=== PATIENT | male | born 1940 | race Caucasian/White ===

== ENCOUNTER → 2016-11-14 | Outpatient (CLI) | payer MEDICARE ==
[~2016-11-14] MED LIST: ASP81TEC PO; ATOR40TA70 PO; CARV12.5 GT; LISI1TAB10 PO; MULT-974 PO; NTR.4SL SL; PIOG1TAB15 PO; RT-FLOV44 INH
--- NOTE | 2016-11-14 10:47 | Diagnostic Imaging Report ---
PA and lateral chest. INDICATION: Shortness of breath. The mild cardiomegaly and the sternotomy wires and surgical clips noted on the prior exam of 11/18/2016, are again evident and no different; however, in the interval since the previous study a moderate left pleural effusion has developed. I suspect there is also some atelectasis/infiltrate in this region. Furthermore, there is also now a suggestion of a roughly 3-cm rounded soft tissue density near the left heart border. The possibility that this is related to a neoplastic mass should certainly be considered. CT of the chest would be recommended for further evaluation. The left upper lung and right lung are generally clear. The mediastinum is not widened. The osseous structures are intact. IMPRESSION: The appearance of the chest has worsened since the prior study as left lower lobe pneumonia/atelectasis and fluid has developed. There is also a question of a neoplastic mass involving the left lower lobe. CT of the chest would be recommended for further study. Dictated by: Dictated on workstation # [id number]
== END ==
LOC: RAD 08:36
PROVIDERS: ATTEND Internal Medicine
DX: R06.00 Dyspnea, unspecified (principal)
CPT/HCPCS: 71020

== ENCOUNTER → 2016-11-20 | Outpatient (CLI) | payer MEDICARE ==
[~2016-11-20] MED LIST changes: +CATHETER FLUSH 10 ML SYR IV PRN; +IOHEXOL 350 MG/ML 100 ML (OMNIPAQUE 350) VIAL IV ONE; +NS 100 ML (IVPB) BAG IV ONE
[2016-11-20 11:02] LABS: BLOOD UREA NITROGEN 15 MG/DL (7-18); BUN/CREATININE RATIO 18; CREATININE SERUM 0.85 MG/DL (0.60-1.30); GFR ESTIMATED > 60
--- NOTE | 2016-11-20 13:36 | Diagnostic Imaging Report ---
PROCEDURE: CT chest with contrast only. TECHNIQUE: Multiple contiguous axial images were obtained through the chest after administration of intravenous contrast. INDICATION: Shortness of breath. Abnormal chest x-ray. Possible pleural effusion. 75 mL of Omnipaque-350 was administered intravenously. FINDINGS: There is a small to moderate left pleural effusion with enhancing, slightly thickened pleural lining, could be secondary to infection. There is associated consolidation in the left lower lobe with anteriorly an area that has a mass-like appearance measuring 3.8 x 2.3 cm. There are a few scattered calcifications which could be related to preexistent prior granulomatous process. The findings are favored to be related to pneumonia with likely infected adjacent effusion/early empyema. There are borderline-sized lymph nodes in the grazyna and mediastinum, probably reactive. There is mild scarring in the right lung base. No mediastinal mass. The findings are related to prior CABG with a healed sternotomy noted. Sternotomy wires are seen. There is no axillary lymphadenopathy. Sections of the upper abdomen demonstrate liver hyperattenuating lesions up to 2.9 x 2.3 cm, probably simple cysts. The osseous structures demonstrate mild degenerative changes and bridging syndesmophytes. IMPRESSION: Areas of consolidation in the left lower lobe with an adjacent effusion are favored to be related to pneumonia. The thickened enhancing pleura around the small to moderate effusion is concerning for infected effusion/early empyema. Followup study after treatment to ensure resolution with no remaining mass is recommended. Report was faxed to office of Dr. Khan by jamil at 1:37 p.m. Dictated by: Dictated on workstation # [id number]
== END ==
LOC: RAD 10:26
PROVIDERS: ATTEND Internal Medicine
DX: R93.1 Abnormal findings on diagnostic imaging of heart and coronary circulation (principal)
CPT/HCPCS: 36415; 71260; 82565; 84520

== ENCOUNTER → 2016-11-22 | Outpatient (CLI) | payer MEDICARE ==
[~2016-11-22] MED LIST changes: -CATHETER FLUSH 10 ML SYR IV PRN; -IOHEXOL 350 MG/ML 100 ML (OMNIPAQUE 350) VIAL IV ONE; -NS 100 ML (IVPB) BAG IV ONE
--- NOTE | 2016-11-23 10:47 | Physician Query-Final Dx ---
KIMMY WILDER 11/23/16 1046: Clinic Account Progress/Dx Physician Query: Please give diagnosis Date of Service Nov 22, 2016 at 14:57 JODY FLYNN DO 12/19/16 0941: Clinic Account Progress/Dx DIAGNOSIS: Diagnosis Diagnosis for what? Call me and we will talk about it. There is not any other information here besides your question. KIMMY WILDER Nov 23, 2016 10:46 JODY FLYNN DO Dec 19, 2016 09:41
== END ==
LOC: LAB 14:57
PROVIDERS: ATTEND Internal Medicine Critical Care Medicine
DX: J90 Pleural effusion, not elsewhere classified (principal)
CPT/HCPCS: 36415; 83880

== ENCOUNTER → 2016-11-23 | Outpatient (CLI) | payer MEDICARE ==
[~2016-11-23] VITALS: Ht 188 cm; Wt 108.9 kg
[2016-11-23 10:25] VITALS: BP 138/80
[2016-11-23] MEDS: LIDOCAINE 1% INJ 20 ML (XYLOCAINE) VIAL ONE (10:50)
[2016-11-23 11:08] VITALS: BP 130/80
[2016-11-23 11:58] LABS: GLUCOSE,BODY FLUID 107 MG/DL; LDH,BODY FLUID 258 U/L; TOTAL PROTEIN,BODY FLUID 3.4 G/DL
--- NOTE | 2016-11-23 12:52 | Diagnostic Imaging Report ---
EXAMINATION: Ultrasound guided thoracentesis. INDICATION: Left pleural effusion. CONSENT: Informed consent was obtained from the patient. The risks, benefits, potential complications and alternatives were reviewed and all questions answered to the patient's satisfaction. FINDINGS: Simple appearing left pleural effusion. PROCEDURE: After sterile preparation and draping, 1% lidocaine was utilized for local anesthesia. An appropriate intercostal approach is selected based on preliminary scanning with ultrasound. Under live visualization with ultrasound, 6.5 Spanish drainage catheter is introduced with trocar technique into the left pleural space. Image of proper location of the needle is documented. The needle is removed and the sheath is left in the pleural space. A total of 160 mL of yellow serous fluid is drained. The sheath is removed at the end of the drainage procedure. The fluid is sent to the lab for analysis. . The patient tolerated the procedure well with no immediate complications. IMPRESSION: Successful ultrasound-guided left thoracentesis. Dictated by: Dictated on workstation # [id number]
== END ==
LOC: RAD 10:08
PROVIDERS: ATTEND Internal Medicine Critical Care Medicine
DX: J90 Pleural effusion, not elsewhere classified (principal); J42 Unspecified chronic bronchitis
CPT/HCPCS: 32555; 82945; 83615; 83986; 84157; 87070; 87075; 87101; 87205; 88112; 88305; 89051

== ENCOUNTER → 2017-01-15 | Outpatient (CLI) | payer MEDICARE ==
--- NOTE | 2017-01-15 10:48 | Diagnostic Imaging Report ---
INDICATION: Followup left pleural effusion PA and lateral chest There are postop changes from CABG surgery. There is blunting of left costophrenic angle consistent with a small effusion. This volume of fluid is not appreciably increased or decreased from 11/14/2016. Right lung is clear. IMPRESSION: There continues to be some left basilar consolidation with a complex effusion that contains some small air-fluid levels. The air-fluid levels are new since the prior study. Dictated by: Dictated on workstation # [id number]
== END ==
LOC: RAD 08:50
PROVIDERS: ATTEND Internal Medicine
DX: J90 Pleural effusion, not elsewhere classified (principal)
CPT/HCPCS: 71020

== ENCOUNTER → 2017-01-24 | Outpatient (CLI) | payer MEDICARE ==
[2017-01-24 10:58] LABS: BASOPHILS # (AUTO) 0.1 10^3/uL (0.0-0.1); BASOPHILS % (AUTO) 1 % (0-10); EOSINOPHILS # (AUTO) 0.2 10^3/uL (0.0-0.3); EOSINOPHILS % (AUTO) 2 % (0-10); LYMPHOCYTES % (AUTO) 23 % (12-44); MEAN CORPUSCULAR HEMOGLOBIN 31 PG (25-34); MEAN CORPUSCULAR HGB CONC 33 G/DL (32-36); MEAN CORPUSCULAR VOLUME 92 FL (80-99); MEAN PLATELET VOLUME 9.3 FL (7.4-10.4); MONOCYTES # (AUTO) 0.8 X 10^3 (0.0-1.0); MONOCYTES % (AUTO) 10 % (0-12); NEUTROPHILS # (AUTO) 5.6 X 10^3 (1.8-7.8); NEUTROPHILS % (AUTO) 65 % (42-75); PLATELET COUNT 287 10^3/uL (130-400); RED BLOOD COUNT 4.54 10^6/uL (4.35-5.85); RED CELL DISTRIBUTION WIDTH 14.3 % (10.0-14.5); WHITE BLOOD COUNT 8.6 10^3/uL (4.3-11.0)
[2017-01-24 11:19] LABS: ALANINE AMINOTRANSFERASE 19 U/L (0-55); ALBUMIN 4.1 G/DL (3.2-4.5); ANION GAP 8 MMOL/L (5-14); ASPARTATE AMINO TRANSFERASE 22 U/L (5-34); BILIRUBIN,TOTAL 0.3 MG/DL (0.1-1.0); BLOOD UREA NITROGEN 12 MG/DL (7-18); BUN/CREATININE RATIO 13; CALCIUM 9.9 MG/DL (8.5-10.1); CARBON DIOXIDE 26 MMOL/L (21-32); CHLORIDE 103 MMOL/L (98-107); GFR ESTIMATED > 60; GLUCOSE 118 MG/DL (70-105); POTASSIUM 4.5 MMOL/L (3.6-5.0); SODIUM 137 MMOL/L (135-145); TOTAL PROTEIN 7.8 G/DL (6.4-8.2)
== END ==
LOC: LAB 10:41
PROVIDERS: ATTEND Internal Medicine Critical Care Medicine
DX: J90 Pleural effusion, not elsewhere classified (principal); J42 Unspecified chronic bronchitis
CPT/HCPCS: 36415; 80053; 85025

== ENCOUNTER → 2017-01-25 | Outpatient (CLI) | payer MEDICARE ==
[~2017-01-25] MED LIST changes: +CATHETER FLUSH 10 ML SYR IV PRN; +IOHEXOL 350 MG/ML 100 ML (OMNIPAQUE 350) VIAL IV ONE; +NS 100 ML (IVPB) BAG IV ONE
[2017-01-25 10:34] LABS: BLOOD UREA NITROGEN 19 MG/DL (7-18); BUN/CREATININE RATIO 21; CREATININE SERUM 0.91 MG/DL (0.60-1.30); GFR ESTIMATED > 60
--- NOTE | 2017-01-25 12:11 | Diagnostic Imaging Report ---
PROCEDURE: CT chest with contrast only. TECHNIQUE: Multiple contiguous axial images were obtained through the chest after administration of intravenous contrast. INDICATION: Chronic bronchitis. FINDINGS: The previous CT chest exam performed on 11/20/16 noted an area of consolidation in the left lung base with an adjacent effusion. This finding was felt to be more likely due to pneumonia than to neoplasm. The possibility of an early empyema was raised. In the interval since the previous exam, the fluid in the left lung base has decreased slightly. This fluid collection now measures approximately 2.3 cm in maximum depth as opposed to 2.8 cm previously. In the interval since the previous study, several sizable collections of gas have developed within this fluid collection and this may well represent an empyema. The abnormal parenchymal density in the left lung base seen previously is again visualized and no different. These could be secondary to chronic atelectasis/infiltrate. It will be unlikely that these are neoplastic in nature. The chronic pulmonary changes involving the left upper lung and the right lung seen previously are again visualized and no different. The heart is stable in size. There are coronary artery calcifications evident and there are sternotomy wires and surgical clips visualized as well. The ascending aorta is borderline enlarged measuring 4.0 x 4.1 cm in maximum transverse and AP diameters. There is no sign of a dissection. There is no defect within the pulmonary arteries to indicate a pulmonary embolus. There is no mediastinal or hilar adenopathy. The thyroid gland is generally unremarkable. The sections through the upper abdomen fail to show any sign of an acute abnormality. As on the previous exam, there are several rounded areas of low density scattered throughout the liver. Most likely, these are cysts. The bone windows show no evidence for an acute fracture. There are healed rib fractures on the left. IMPRESSION: 1. The fluid collection along the left lung base seen previously is slightly smaller than noted on the prior exam. However, several collections of gas have developed within this fluid collection in the interval since the prior exam. I suspect that this is an empyema. 2. The areas of consolidation involving the left lung base seen previously are again evident and no different. These may be related to primarily chronic atelectasis. 3. There is borderline cardiomegaly, coronary artery disease and evidence of prior cardiac surgery. 4. The ascending aorta is borderline enlarged. There is no sign of a dissection of the aorta. Dictated by: Dictated on workstation # [id number]
== END ==
LOC: RAD 09:56
PROVIDERS: ATTEND Internal Medicine Critical Care Medicine
DX: J90 Pleural effusion, not elsewhere classified (principal); J42 Unspecified chronic bronchitis
CPT/HCPCS: 36415; 71260; 82565; 84520

== ENCOUNTER → 2017-04-01 | Outpatient (CLI) | payer MEDICARE ==
[~2017-04-01] MED LIST changes: -CATHETER FLUSH 10 ML SYR IV PRN; -IOHEXOL 350 MG/ML 100 ML (OMNIPAQUE 350) VIAL IV ONE; -NS 100 ML (IVPB) BAG IV ONE; +RT-ALBUTEROL SULF 2.5 MG/3 ML PRE-MIX VIAL IH ONE
== END ==
LOC: RT 14:04
PROVIDERS: ATTEND Nurse Practitioner Family
DX: R06.00 Dyspnea, unspecified (principal)
CPT/HCPCS: 94060; 94640; 94726; 94729

== ENCOUNTER → 2017-06-27 | Outpatient (CLI) | payer MEDICARE ==
[~2017-06-27] MED LIST changes: +IOHEXOL 350 MG/ML 100 ML (OMNIPAQUE 350) VIAL IV ONE; +NS 100 ML (IVPB) BAG IV ONE; -RT-ALBUTEROL SULF 2.5 MG/3 ML PRE-MIX VIAL IH ONE
[2017-06-27 09:42] LABS: BLOOD UREA NITROGEN 14 MG/DL (7-18); BUN/CREATININE RATIO 15; CREATININE SERUM 0.93 MG/DL (0.60-1.30); GFR ESTIMATED > 60
--- NOTE | 2017-06-27 12:58 | Diagnostic Imaging Report ---
PROCEDURE: CT chest with contrast only. TECHNIQUE: Multiple contiguous axial images were obtained through the chest after administration of intravenous contrast. INDICATION: Pleural effusion. History of open heart surgery. 75 mL of Omnipaque 350 is administered intravenously. COMPARISON: 01/25/2017. FINDINGS: Khexv-ki-pjiqsyyb amount of pleural effusion is seen on the left side with thickening and enhancement of the pleural lining. Previously seen air bubbles within the pleural effusion are not present at this time. There is no change in the overall size of the effusion when compared to the previous exam. There is atelectasis in the left lower lobe. This is also similar to the previous exam, and element of scarring is probably present. There is a 1 cm nodule within the lateral aspect of the atelectatic left lower lobe, unchanged from 01/25/2017. There is also chronic atelectasis and scarring suggested in the inferior lingula. The rest of the left lung demonstrates no significant abnormality. The right lung demonstrates nonspecific scarring in the right lower lobe near the lung base with mild bronchiectasis. No suspicious nodule or consolidation is seen. A nodular density favored to be related to a scar in the upper aspect of the right middle lobe is noted measuring 5 mm. The mediastinum demonstrates no mass or significantly enlarged lymph nodes. No hilar lymphadenopathy is seen. The heart size is normal. No pericardial effusion. No axillary lymphadenopathy. There is healed sternotomy seen. The thoracic spine demonstrates lateral syndesmophytes and mild sclerotic degenerative changes at the endplates. Low-density multiple lesions within the liver are again noted suggestive of multiple hepatic cysts. IMPRESSION: 1. Stable mcwly-kb-wfvbhszg left pleural effusion with thickened pleural lining and adjacent chronic atelectasis and scarring in the left lung base. 2. There is scarring and bronchiectasis also noted in the right lung base. 3. There is a nonspecific 1 cm nodule along the lateral aspect of the left lower lobe within the area of chronic atelectasis and scarring, axial image 43. Follow-up enhanced study in six months is recommended to prove stability. Dictated by: Dictated on workstation # [id number]
== END ==
LOC: RAD 09:08
PROVIDERS: ATTEND Nurse Practitioner Family
DX: J90 Pleural effusion, not elsewhere classified (principal); R91.1 Solitary pulmonary nodule; J47.9 Bronchiectasis, uncomplicated
CPT/HCPCS: 36415; 71260; 82565; 84520

== ENCOUNTER → 2017-12-23 | Outpatient (CLI) | payer MEDICARE ==
[~2017-12-23] MED LIST changes: +CATHETER FLUSH 10 ML SYR IV PRN
[2017-12-23 09:37] LABS: BUN/CREATININE RATIO 22; CREATININE SERUM 0.93 MG/DL (0.60-1.30); GFR ESTIMATED > 60
--- NOTE | 2017-12-23 10:50 | Diagnostic Imaging Report ---
PROCEDURE: CT chest with contrast only. TECHNIQUE: Multiple contiguous axial images were obtained through the chest after administration of intravenous contrast. INDICATION: Lung nodule. COMPARISON: 06/27/2017. FINDINGS: There is some persistent left basilar atelectasis and/or pneumonitis. There is an unchanged 1 cm area of low density within the atelectatic lung. There is a persistent small left pleural effusion. There is also some scarring or atelectasis in the right lung base. There are no new pulmonary nodules, masses, or infiltrates. There is no pneumothorax. There is no pathologically enlarged adenopathy. The thoracic aorta is normal in caliber without evidence of dissection. There are coronary artery calcifications. There are multiple cysts in the liver. The remainder of the intra-abdominal structures is unremarkable. IMPRESSION: Persistent left basilar atelectasis and/or pneumonitis and a small left pleural effusion. There is an unchanged nonspecific 1 cm area of decreased density within the atelectatic lung. An additional six-month followup is recommended to ensure stability. Unchanged scarring or atelectasis in the right lung base. Multiple hepatic cysts. Dictated by: Dictated on workstation # [id number]
== END ==
LOC: RAD 08:46
PROVIDERS: ATTEND Nurse Practitioner Family
DX: J90 Pleural effusion, not elsewhere classified (principal); J98.11 Atelectasis; K76.89 Other specified diseases of liver; R91.8 Other nonspecific abnormal finding of lung field
CPT/HCPCS: 36415; 71260; 82565; 84520

== ENCOUNTER → 2018-01-24 | Outpatient (RCR) | payer MEDICARE ==
[~2018-01-24] MED LIST changes: -CATHETER FLUSH 10 ML SYR IV PRN; -IOHEXOL 350 MG/ML 100 ML (OMNIPAQUE 350) VIAL IV ONE; -NS 100 ML (IVPB) BAG IV ONE
== END | disposition home or self-care (01) ==
LOC: CR3 12-25 06:00
PROVIDERS: ATTEND Internal Medicine
DX: Z29.8 Encounter for other specified prophylactic measures (principal)

== ENCOUNTER → 2018-02-28 | Outpatient (RCR) | payer MEDICARE | END | disposition home or self-care (01) | LOC: CR3 01-29 06:00 | PROVIDERS: ATTEND Internal Medicine | DX: Z29.8 Encounter for other specified prophylactic measures (principal) ==

== ENCOUNTER → 2018-04-02 | Outpatient (RCR) | payer MEDICARE | END | disposition home or self-care (01) | LOC: CR3 03-03 08:54 | PROVIDERS: ATTEND Internal Medicine | DX: Z29.8 Encounter for other specified prophylactic measures (principal) ==

== ENCOUNTER 2018-04-30 06:26 | Outpatient (RCR) | payer MEDICARE | END 2018-05-04 | disposition home or self-care (01) | LOC: CR3 06:26 | PROVIDERS: ATTEND Internal Medicine | DX: Z29.8 Encounter for other specified prophylactic measures (principal) ==

== ENCOUNTER → 2018-06-04 | Outpatient (RCR) | payer MEDICARE | END | disposition home or self-care (01) | LOC: CR3 05-05 06:00 | PROVIDERS: ATTEND Internal Medicine | DX: Z01.818 Encounter for other preprocedural examination (principal) ==

== ENCOUNTER → 2018-06-26 | Outpatient (CLI) | payer MEDICARE ==
[~2018-06-26] MED LIST changes: +CATHETER FLUSH 10 ML SYR IV PRN; +IOHEXOL 350 MG/ML 100 ML (OMNIPAQUE 350) VIAL IV ONE; +NS 250 ML (IVPB) BAG IV ONE
[2018-06-26 09:06] LABS: BUN/CREATININE RATIO 17; CREATININE SERUM 1.03 MG/DL (0.60-1.30); GFR ESTIMATED > 60
--- NOTE | 2018-06-26 10:40 | Diagnostic Imaging Report ---
PROCEDURE: CT chest with contrast only. TECHNIQUE: Multiple contiguous axial images were obtained through the chest after administration of intravenous contrast. INDICATION: Followup pleural effusion. Correlation is made with prior CT chest from 12/23/2017. Changes of median sternotomy are noted. No axillary lymphadenopathy is identified. No definite mediastinal or hilar lymphadenopathy is identified. No pericardial fluid is detected. Small left effusion appears similar to prior exam. The region of parenchymal consolidation in the left lower lobe adjacent to the effusion is also unchanged. A vague area of low density in the area of parenchymal consolidation is stable. No right-sided effusion is seen. Interstitial scarring in the right middle lobe and right lower lobe similar to prior study. Upper abdomen again demonstrates numerous cysts within the liver. IMPRESSION: Overall stable CT of the chest when compare with prior CT from 12/23/2017. Small left effusion with associated left basilar consolidation is stable. Dictated by: Dictated on workstation # [id number]
== END ==
LOC: RAD 08:28
PROVIDERS: ATTEND Nurse Practitioner Family
DX: J90 Pleural effusion, not elsewhere classified (principal); J18.1 Lobar pneumonia, unspecified organism; J42 Unspecified chronic bronchitis; R91.8 Other nonspecific abnormal finding of lung field
CPT/HCPCS: 36415; 71260; 82565; 84520

== ENCOUNTER 2018-07-04 07:31 | Outpatient (RCR) | payer MEDICARE ==
[~2018-07-04 07:31] MED LIST changes: -CATHETER FLUSH 10 ML SYR IV PRN; -IOHEXOL 350 MG/ML 100 ML (OMNIPAQUE 350) VIAL IV ONE; -NS 250 ML (IVPB) BAG IV ONE
== END 2018-07-06 | disposition home or self-care (01) ==
LOC: CR3 07:31
PROVIDERS: ATTEND Internal Medicine
DX: Z29.8 Encounter for other specified prophylactic measures (principal)

== ENCOUNTER → 2018-08-06 | Outpatient (RCR) | payer MEDICARE | END | disposition home or self-care (01) | LOC: CR3 07-07 06:00 | PROVIDERS: ATTEND Internal Medicine | DX: Z01.818 Encounter for other preprocedural examination (principal) ==

== ENCOUNTER → 2018-09-10 | Outpatient (RCR) | payer MEDICARE | END | disposition home or self-care (01) | LOC: CR3 08-11 06:00 | PROVIDERS: ATTEND Internal Medicine | DX: Z29.8 Encounter for other specified prophylactic measures (principal) ==

== ENCOUNTER 2018-10-10 06:27 | Outpatient (RCR) | payer MEDICARE | END 2018-10-12 | disposition home or self-care (01) | LOC: CR3 06:27 | PROVIDERS: ATTEND Internal Medicine | DX: Z29.8 Encounter for other specified prophylactic measures (principal) ==

== ENCOUNTER 2018-11-14 06:22 | Outpatient (RCR) | payer MEDICARE | END 2018-11-16 | disposition home or self-care (01) | LOC: CR3 06:22 | PROVIDERS: ATTEND Internal Medicine | DX: Z29.8 Encounter for other specified prophylactic measures (principal) ==

== ENCOUNTER → 2018-12-17 | Outpatient (RCR) | payer MEDICARE | END | disposition home or self-care (01) | LOC: CR3 11-17 06:00 | PROVIDERS: ATTEND Internal Medicine | DX: Z29.8 Encounter for other specified prophylactic measures (principal) ==

== ENCOUNTER 2019-01-16 06:22 | Outpatient (RCR) | payer MEDICARE | END 2019-01-18 | disposition home or self-care (01) | LOC: CR3 06:22 | PROVIDERS: ATTEND Internal Medicine | DX: Z29.8 Encounter for other specified prophylactic measures (principal) ==

== ENCOUNTER → 2019-02-18 | Outpatient (RCR) | payer MEDICARE | END | disposition home or self-care (01) | LOC: CR3 01-19 06:00 | PROVIDERS: ATTEND Internal Medicine | DX: Z29.8 Encounter for other specified prophylactic measures (principal) ==

== ENCOUNTER 2019-03-20 06:08 | Outpatient (RCR) | payer MEDICARE | END 2019-03-22 | disposition home or self-care (01) | LOC: CR3 06:08 | PROVIDERS: ATTEND Internal Medicine | DX: Z29.8 Encounter for other specified prophylactic measures (principal) ==

== ENCOUNTER → 2019-04-22 | Outpatient (RCR) | payer MEDICARE | END | disposition home or self-care (01) | LOC: CR3 03-23 06:00 | PROVIDERS: ATTEND Internal Medicine | DX: Z29.8 Encounter for other specified prophylactic measures (principal) ==

== ENCOUNTER 2019-05-22 06:36 | Outpatient (RCR) | payer MEDICARE | END 2019-05-24 | disposition home or self-care (01) | LOC: CR3 06:36 | PROVIDERS: ATTEND Internal Medicine | DX: Z29.8 Encounter for other specified prophylactic measures (principal) ==

== ENCOUNTER → 2019-06-26 | Outpatient (RCR) | payer MEDICARE | END | disposition home or self-care (01) | LOC: CR3 05-27 06:00 | PROVIDERS: ATTEND Internal Medicine | DX: Z29.8 Encounter for other specified prophylactic measures (principal) ==

== ENCOUNTER 2019-07-13 06:28 | Outpatient (CLI) | payer MEDICARE ==
[~2019-07-13] VITALS: Ht 185.5 cm; Wt 102.3 kg
[2019-07-13] MEDS ORDERED: APIX5TAB PO (09:24)
[2019-07-13] MEDS ORDERED: FLUT1DIS26 IH (09:24)
[2019-07-13] MEDS ORDERED: LEVO5TAB28 PO (09:24)
[2019-07-13] MEDS ORDERED: PIOG15TA67 PO (09:24)
[2019-07-13] MEDS ORDERED: MONT10TA24 PO (09:24)
[2019-07-13] MEDS ORDERED: MULT-1061 PO (09:24)
[2019-07-13] MEDS ORDERED: ATOR40TA70 PO (09:24)
[2019-07-13] MEDS ORDERED: CARV25TA PO (09:24)
[2019-07-13] MEDS ORDERED: CETI10TA17 PO (09:24)
[2019-07-13] MEDS ORDERED: FLT22013 IH (09:24)
[2019-07-13] MEDS ORDERED: ASPI-999 PO (09:24)
[2019-07-13] MEDS ORDERED: NITR0.4T39 SL (09:24)
== END 2019-07-13 09:40 | disposition home or self-care (01) ==
LOC: PREOP 06:28
PROVIDERS: ATTEND Surgery
DX: Z01.818 Encounter for other preprocedural examination (principal)

== ENCOUNTER 2019-07-15 08:52 | Day surgery (SDC) | payer MEDICARE ==
[~2019-07-15] VITALS: Ht 185.5 cm; Wt 102.3 kg
[2019-07-15] VITALS (13 sets, daily range): BP systolic 119–187; BP diastolic 56–81
[~2019-07-15 08:52] MED LIST changes: +APIX5TAB PO; +ASPI-999 PO; +CARV25TA PO; +CETI10TA17 PO; +FLT22013 IH; +FLUT1DIS26 IH; +LEVO5TAB28 PO; +MONT10TA24 PO; +MULT-1061 PO; +NITR0.4T39 SL; +PIOG15TA67 PO
[2019-07-15] MEDS ORDERED: NS IV 500 ML 500 ML ONE (08:57)
[2019-07-15] MEDS ORDERED: fentaNYL INJECTION 100 MCG/2 ML AMP IVP ONE (09:00)
[2019-07-15] MEDS ORDERED: LIDOCAINE JELLY 2% 6 ML SYRINGE MM PRN (09:00)
[2019-07-15] MEDS ORDERED: NS IV 500 ML 500 ML IV PRN (09:00)
[2019-07-15] MEDS ORDERED: LIDOCAINE JELLY 2% 6 ML SYRINGE ONE (10:06)
[2019-07-15] MEDS ORDERED: fentaNYL INJECTION 100 MCG/2 ML AMP ONE (10:06)
[2019-07-15] MEDS ORDERED: MIDAZOLAM 5 MG/5 ML (VERSED) VIAL ONE ×2 (10:06→10:11)
[2019-07-15] MEDS: MIDAZOLAM 5 MG/5 ML (VERSED) VIAL IV PRN ×5 (10:10→10:24)
--- NOTE | 2019-07-15 10:16 | Progress Note-Pre Operative ---
Pre-Operative Progress Note H&P Reviewed The H&P was reviewed, patient examined and no changes noted. Date Seen by Provider: Jul 15, 2019 Time Seen by Provider: 09:00 Date H&P Reviewed: Jul 15, 2019 Time H&P Reviewed: 09:00 Pre-Operative Diagnosis: screening REGIS Mckeon MD Jul 15, 2019 10:16
--- NOTE | 2019-07-15 10:16 | Conscious Sedation/ASA ---
Conscious Sedation Pre-Proced Time 09:00 ASA Score 2 For ASA 3 and 4: Consider anesthesia and medical clearance. Also, for patients with a history of failed moderate sedation consider anesthesia. Airway Lungs Heart ASA score ASA 1: a normal healthy patient ASA 2: a patient with a mild systemic disease (mid diabetes, controlled hypertension, obesity ASA 3: a patient with a severe systemic disease that limits activity (angina, COPD, prior Myocardial infarction) ASA 4: a patient with an incapacitating disease that is a constant threat to life (CHF, renal failure) ASA 5: a moribund patient not expected to survive 24 hrs. (ruptured aneurysm) ASA 6: a declared brain- patient whose organs are being harvested. For emergent operations, add the letter E after the classification Mallampati Classification Grade 2 Sedation Plan Analgesia, Amnesia, Plan communicated to team members, Discussed options with patient/fam, Discussed risks with patient/fam The patient is an appropriate candidate to undergo the planned procedure, sedation, and anesthesia. The patient immediately re-assessed prior to indication. REGIS RICHARDSON MD Jul 15, 2019 10:16
--- NOTE | 2019-07-15 10:18 | Discharge Inst-Surgical ---
D/C Lap Instructions-DEBRA Follow Up Activity as tolerated High Fiber Diet 25g or more per day Avoid Alcohol, Caffeine, Spicy [place] and Acid foods. Drink 64 fluid oz or more of fluids per day. Symptoms to Report: Fever over 101 degree F, Nausea/Vomiting If any problems/questions: Contact your physician or go to Emergency Room REGIS RICHARDSON MD Jul 15, 2019 10:18
[2019-07-15] MEDS ORDERED: ONDANSETRON 4 MG/2 ML (SDV) Z0FRAN IVP PRN (10:30)
[2019-07-15] MEDS ORDERED: ACETAMINOPHEN 325 MG TABLET PO PRN (10:30)
[2019-07-15] MEDS ORDERED: HYDROcodone/APAP 5 MG/325 MG (LORTAB) TAB PO PRN (10:30)
[2019-07-15] MEDS ORDERED: morphine INJ 10 MG/ML 1ML (SYR OR VIAL) IVP PRN ×2 (10:30)
--- NOTE | 2019-07-15 10:47 | Progress Note-Post Operative ---
Post-Operative Progess Note Surgeon (s)/Urban Designer (s) Surgeon REGIS RICHARDSON MD Urban Designer: none Pre-Operative Diagnosis screening colo Post-Operative Diagnosis chronic stage 2 ext and int hemorrhoids. Procedure & Operative Findings Date of Procedure 07/15/19 Procedure Performed/Findings colonoscopy Anesthesia Type cs Estimated Blood Loss Estimated blood loss (mL): minimal Specimens/Packing Specimens Removed none REGIS RICHARDSON MD Jul 15, 2019 10:47
--- NOTE | 2019-07-15 19:21 | OPERATIVE REPORT ---
DATE OF SERVICE: 07/15/2019 ATTENDING PRIMARY CARE PHYSICIAN: Dr. Khan. PREOPERATIVE DIAGNOSIS: Screening colonoscopy. POSTOPERATIVE DIAGNOSIS: Chronic stage II external and internal hemorrhoids. Remainder of the rectum and colon were normal. PROCEDURE: Colonoscopy. SURGEON: Regis Richardson MD ANESTHESIA: Conscious sedation. ESTIMATED BLOOD LOSS: Minimal. FINDINGS: Chronic stage II external and internal hemorrhoids. Prostate gland was palpable and appeared normal. The remainder of the colon and rectum were normal. There were no polyps nor any neoplasms identified. DISPOSITION: The patient tolerated the procedure well. INDICATIONS: The patient is an 79-year-old male in need of a screening colonoscopy. His last colonoscopy was approximately 5 years ago and he states that he did have multiple polyps, which were biopsied and found to be benign. He states for the most part he is otherwise doing well and does have occasional episodes of constipation and does take stool softeners three times a day. He does not report any family history of colon cancer. DESCRIPTION OF PROCEDURE: The patient was brought to the endoscopy suite, laid in left lateral decubitus position. After adequate IV pain and sedating medications and conscious sedation of anesthesia, a digital rectal examination was performed. Chronic stage II external and internal hemorrhoids were identified, which were not actively edematous nor inflamed and no bleeding. Normal sphincter tone was felt and there were no palpable masses. The endoscope was then intubated to the anus and rectum gently insufflated. The endoscope was then advanced through the valves of [place] of the rectum with no polyps or any neoplasms identified. The endoscope was then advanced through the sigmoid colon where no diverticulosis identified. The endoscope was then advanced to the remainder of the descending, transverse and ascending colon to the cecum. These segments were normal. There were no polyps or any neoplasms identified throughout the colon or rectum. The endoscope was then slowly withdrawn while taking a second look and suctioning of residual air with no additional findings. The patient tolerated the procedure well. We will recommend continued medical management with a high fiber diet with 30 grams of fiber daily or more as well as significant amounts of water to promote soft stools on a daily basis and to rely less on stool softeners. No polyps were identified and he does not have any family history of colon cancer, so he may wait 10 years for his next colonoscopy if asymptomatic. Job ID: [id number] DocumentID: [id number] Dictated Date: 07/15/2019 10:43:23 Chip Loft Worker Date: 07/15/2019 19:20:46 Dictated By: REGIS RICHARDSON MD
== END 2019-07-15 11:30 | disposition home or self-care (01) ==
LOC: ENDO 08:52
PROVIDERS: ATTEND Surgery
DX: Z12.11 Encounter for screening for malignant neoplasm of colon (principal); K64.1 Second degree hemorrhoids; K64.8 Other hemorrhoids; E78.00 Pure hypercholesterolemia, unspecified; I25.10 Atherosclerotic heart disease of native coronary artery without angina pectoris; I10 Essential (primary) hypertension; E11.9 Type 2 diabetes mellitus without complications; J44.9 Chronic obstructive pulmonary disease, unspecified; I48.91 Unspecified atrial fibrillation; Z95.0 Presence of cardiac pacemaker; Z79.51 Long term (current) use of inhaled steroids; Z79.82 Long term (current) use of aspirin; Z79.01 Long term (current) use of anticoagulants; Z79.899 Other long term (current) drug therapy; Z87.891 Personal history of nicotine dependence; Z82.49 Family history of ischemic heart disease and other diseases of the circulatory system; Z83.3 Family history of diabetes mellitus

== ENCOUNTER → 2019-07-29 | Outpatient (RCR) | payer MEDICARE | END | disposition home or self-care (01) | LOC: CR3 06-29 06:00 | PROVIDERS: ATTEND Internal Medicine | DX: Z29.8 Encounter for other specified prophylactic measures (principal) ==

== ENCOUNTER → 2019-09-02 | Outpatient (RCR) | payer MEDICARE | END | disposition home or self-care (01) | LOC: CR3 08-03 06:00 | PROVIDERS: ATTEND Internal Medicine | DX: Z29.8 Encounter for other specified prophylactic measures (principal) ==

== ENCOUNTER 2019-10-02 06:22 | Outpatient (RCR) | payer MEDICARE | END 2019-10-04 | disposition home or self-care (01) | LOC: CR3 06:22 | PROVIDERS: ATTEND Internal Medicine | DX: Z29.8 Encounter for other specified prophylactic measures (principal) ==

== ENCOUNTER → 2019-11-04 | Outpatient (RCR) | payer MEDICARE | END | disposition home or self-care (01) | LOC: CR3 10-05 06:00 | PROVIDERS: ATTEND Internal Medicine | DX: Z29.8 Encounter for other specified prophylactic measures (principal) ==

== ENCOUNTER 2019-12-04 06:08 | Outpatient (RCR) | payer MEDICARE ==
[~2019-12-04 06:08] MED LIST changes: -MONT10TA24 PO; +MONT10TA26 PO
== END 2019-12-06 | disposition home or self-care (01) ==
LOC: CR3 06:08
PROVIDERS: ATTEND Internal Medicine
DX: Z29.8 Encounter for other specified prophylactic measures (principal)

== ENCOUNTER 2019-12-07 06:00 | Outpatient (RCR) | payer MEDICARE | END 2020-01-06 | disposition home or self-care (01) | LOC: CR3 06:00 | PROVIDERS: ATTEND Internal Medicine | DX: Z29.8 Encounter for other specified prophylactic measures (principal) ==

== ENCOUNTER → 2020-05-26 | Outpatient (CLI) | payer MEDICARE ==
[~2020-05-26] MED LIST changes: +CATHETER FLUSH 10 ML SYR IV PRN; +HOLD METFORMIN - RECEIVED CONTRAST 20 ML VIAL IV SCH; +IOHEXOL 350 MG/ML 100 ML (OMNIPAQUE 350) VIAL IV ONE; +NS 100 ML (IVPB) BAG IV ONE
[2020-05-26 08:56] LABS: BUN/CREATININE RATIO 24; CREATININE SERUM 0.92 MG/DL (0.60-1.30); GFR ESTIMATED > 60
--- NOTE | 2020-05-26 10:38 | Diagnostic Imaging Report ---
PROCEDURE: CT chest with contrast only. TECHNIQUE: Multiple contiguous axial images were obtained through the chest after administration of intravenous contrast. Auto Exposure Controls were utilized during the CT exam to meet ALARA standards for radiation dose reduction. INDICATION: Hemoptysis The previous CT chest exam of 06/26/18 noted atelectasis/infiltrate and fluid involving the left lung base. These findings seem stable when compared to the prior CT chest exam of 12/23/17. On this exam, the atelectasis/infiltrate and fluid in the left lung base seen on the prior study is again evident and does not appear to have changed significantly. The left lung is otherwise generally clear as is the right lung. The chronic pulmonary changes involving both lungs seen previously is again evident and does not seem to have changed significantly. There is a 4.9 mm noncalcified nodule in the right midlung (image 78 of 149 on the prior exam of 12/23/17 this measured 4.6 mm). I do suspect this is most likely a benign process. The heart is mildly enlarged but stable. Extensive coronary artery calcifications and sternotomy wires and surgical clips are again noted. The aorta is not abnormally dilated. There is no defect within the pulmonary arteries to indicate a pulmonary embolus. There is no mediastinal or hilar adenopathy. The thyroid gland is generally unremarkable. The sections through the upper abdomen again show multiple cysts within the liver. There is no acute abnormality of the upper abdomen where visualized. The bone windows show no sign of a fracture or of a destructive lesion. IMPRESSION: 1. The chronic atelectasis/infiltrate and fluid involving the left lung base seen previously is again evident and no different. There are chronic pulmonary changes and the small nodule in the right midlung seen on the prior study are also stable. There is no acute cardiopulmonary abnormality noted. 2. There is mild cardiomegaly and coronary artery disease and evidence of prior cardiac surgery. 3. The suspected cysts within the liver seen previously are again evident and no different. Dictated by: Dictated on workstation # [id number]
== END ==
LOC: RAD 09:45
PROVIDERS: ATTEND Nurse Practitioner Family
DX: Z01.812 Encounter for preprocedural laboratory examination (principal); I25.10 Atherosclerotic heart disease of native coronary artery without angina pectoris; I51.7 Cardiomegaly; R91.1 Solitary pulmonary nodule; R04.2 Hemoptysis; Z98.890 Other specified postprocedural states
CPT/HCPCS: 36415; 71260; 82565; 84520

== ENCOUNTER 2020-06-21 05:34 | Outpatient (RCR) | payer MEDICARE ==
[~2020-06-21] VITALS: Ht 188 cm; Wt 105.9 kg
[~2020-06-21 05:34] MED LIST changes: -CATHETER FLUSH 10 ML SYR IV PRN; -HOLD METFORMIN - RECEIVED CONTRAST 20 ML VIAL IV SCH; -IOHEXOL 350 MG/ML 100 ML (OMNIPAQUE 350) VIAL IV ONE; -NS 100 ML (IVPB) BAG IV ONE
== END 2020-06-21 10:40 | disposition home or self-care (01) ==
LOC: PREOP 05:34
PROVIDERS: ATTEND Internal Medicine Critical Care Medicine
DX: Z01.812 Encounter for preprocedural laboratory examination (principal); J42 Unspecified chronic bronchitis; J30.9 Allergic rhinitis, unspecified; R91.8 Other nonspecific abnormal finding of lung field; Z20.828 Contact with and (suspected) exposure to other viral communicable diseases
CPT/HCPCS: 87635

== ENCOUNTER 2020-06-23 06:58 | Day surgery (SDC) | payer MEDICARE ==
[~2020-06-23] VITALS: Ht 188 cm; Wt 105.9 kg
[2020-06-23] MEDS ORDERED: LIDOCAINE PF 1% 2 ML VIAL IJ ONE (06:59)
[2020-06-23] MEDS ORDERED: LIDOCAINE PF 2% 5 ML (XYLOCAINE) VIAL INJ ONE (06:59)
[2020-06-23] MEDS ORDERED: LIDOCAINE JELLY 2% 6 ML SYRINGE TOP ONE (06:59)
[2020-06-23] MEDS ORDERED: LACTATED RINGERS 1,000 ML IV ONE (07:03)
[2020-06-23 07:20] VITALS: BP 174/82
[2020-06-23] MEDS ORDERED: proPOfol 200 MG/20 ML (DIPRIVAN) VIAL IV ONE (07:25)
[2020-06-23] MEDS ORDERED: KETAMINE/NaCl 50 MG/5 ML SYRINGE (ED ONLY) ONE (07:26)
[2020-06-23] MEDS ORDERED: MIDAZOLAM 2 MG/2 ML (VERSED) VIAL ONE (07:26)
--- NOTE | 2020-06-23 07:33 | Progress Note-Pre Operative ---
Pre-Operative Progress Note H&P Reviewed The H&P was reviewed, patient examined and no changes noted. Time Seen by Provider: 07:33 Date H&P Reviewed: Jun 23, 2020 Time H&P Reviewed: 07:33 Pre-Operative Diagnosis: lung nodule and cough JODY FLYNN DO Jun 23, 2020 07:33
--- NOTE | 2020-06-23 07:34 | Pulmonary Procedures ---
Pulmonary Procedures Date of Procedure Date of Service: Jun 23, 2020 Bronch Bronchoscopy with brush of jose eduardo, RML bronchoalveolar lavage (BAL), transbronchial washes and, brushes. Preop DX Lung nodule, cough Postop DX: same Complications: none After informed consent obtained and formal time out pt was sedated using Fentanyl and Versed. Bronchoscope was advanced through the nare and vocal cords. 1% lidocaine was used to anesthetize vocal cords, epiglottis, jose eduardo, and left/right main stem bronchus. An anatomical tour was undertaken down to the segmental bronchi bilaterally. No endobronchial lesions noted. From the RML a bronchoalveolar lavage (BAL), transbronchial washes and, brushes were obtained. Pt tolerated procedure well. No complications noted. Stat CXR is pending. JODY FLYNN DO Jun 23, 2020 07:34
[2020-06-23] MEDS ORDERED: LACTATED RINGERS 1,000 ML IV STA (07:35)
[2020-06-23 08:05] VITALS: BP 148/62
[2020-06-23 08:10] VITALS: BP 145/70
--- NOTE | 2020-06-23 08:27 | Anesthesia-General Post-Op ---
MAC Patient Condition Mental Status/LOC: Same as Preop Cardiovascular: Satisfactory Nausea/Vomiting: Absent Respiratory: Satisfactory Pain: Controlled Complications: Absent Post Op Complications Complications None Follow Up Care/Instructions Patient Instructions None needed. Anesthesiology Discharge Order Discharge Order Patient is doing well, no complaints, stable vital signs, no apparent adverse anesthesia problems. No complications reported per nursing. MITUL CABRALES CRNA Jun 23, 2020 08:27
[2020-06-23 08:40] VITALS: BP 155/71
--- NOTE | 2020-06-23 08:40 | Diagnostic Imaging Report ---
EXAMINATION: Chest 1 view HISTORY: Status post bronchoscopy COMPARISON: Chest radiograph 01/15/2017 FINDINGS: Heart size and pulmonary vasculature are unchanged with surgical changes from CABG. There is a small left pleural effusion with bibasilar atelectasis or consolidation, left greater than right. No pneumothorax. The osseous structures are intact. IMPRESSION: 1. Small left pleural effusion with left greater than right bibasilar atelectasis or consolidation. Dictated by: Dictated on workstation # [id number]
--- NOTE | 2020-06-23 08:50 | Diagnostic Imaging Report ---
INDICATION: Fluoroscopy for bronchoscopy. Fluoroscopy was provided for Dr. Piña during bronchoscopy. 10 seconds of fluoroscopic time was utilized. A single image was obtained. IMPRESSION: Fluoroscopy during bronchoscopy. Dictated by: Dictated on workstation # [id number]
[2020-06-23 08:52] VITALS: BP 155/71
== END 2020-06-23 08:52 | disposition home or self-care (01) ==
LOC: ENDO 06:58
PROVIDERS: ATTEND Internal Medicine Critical Care Medicine
DX: R91.1 Solitary pulmonary nodule (principal); J30.9 Allergic rhinitis, unspecified; J90 Pleural effusion, not elsewhere classified; J42 Unspecified chronic bronchitis; I10 Essential (primary) hypertension; I25.810 Atherosclerosis of coronary artery bypass graft(s) without angina pectoris; J43.9 Emphysema, unspecified; E11.9 Type 2 diabetes mellitus without complications; E78.5 Hyperlipidemia, unspecified; I48.91 Unspecified atrial fibrillation; E66.9 Obesity, unspecified; Z68.30 Body mass index [BMI] 30.0-30.9, adult; Z79.01 Long term (current) use of anticoagulants; Z79.82 Long term (current) use of aspirin; Z79.84 Long term (current) use of oral hypoglycemic drugs; Z79.899 Other long term (current) drug therapy; Z87.891 Personal history of nicotine dependence
CPT/HCPCS: 71045; 76000; 82962; 87015; 87070; 87077; 87101; 87106; 87116; 87205; 87206; 88112; 88305; 88312; 94640

== ENCOUNTER → 2021-01-04 | Outpatient (RCR) | payer MEDICARE ==
[~2021-01-04] MED LIST changes: -MONT10TA26 PO; +MONT10TA32 PO
== END | disposition home or self-care (01) ==
LOC: CR3 12-05 05:31
PROVIDERS: ATTEND Internal Medicine
DX: Z29.8 Encounter for other specified prophylactic measures (principal)

== ENCOUNTER 2021-02-01 06:34 | Outpatient (RCR) | payer MEDICARE | END 2021-02-05 | disposition home or self-care (01) | LOC: CR3 06:34 | PROVIDERS: ATTEND Internal Medicine | DX: Z29.8 Encounter for other specified prophylactic measures (principal) ==

== ENCOUNTER → 2021-03-08 | Outpatient (RCR) | payer MEDICARE | END | disposition home or self-care (01) | LOC: CR3 02-06 06:18 | PROVIDERS: ATTEND Internal Medicine | DX: Z29.8 Encounter for other specified prophylactic measures (principal) ==

== ENCOUNTER 2021-04-05 06:43 | Outpatient (RCR) | payer MEDICARE | END 2021-04-09 | disposition home or self-care (01) | LOC: CR3 06:43 | PROVIDERS: ATTEND Internal Medicine | DX: Z29.8 Encounter for other specified prophylactic measures (principal) ==

== ENCOUNTER → 2021-04-27 | Outpatient (CLI) | payer MEDICARE ==
[~2021-04-27] MED LIST changes: +CATHETER FLUSH 10 ML SYR IV PRN; +HOLD METFORMIN - RECEIVED CONTRAST 20 ML VIAL IV SCH; +IOHEXOL 350 MG/ML 100 ML (OMNIPAQUE 350) VIAL IV ONE; +NS 100 ML (IVPB) BAG IV ONE
[2021-04-27 08:27] LABS: CREATININE SERUM 0.86 MG/DL (0.60-1.30)
--- NOTE | 2021-04-27 10:13 | Diagnostic Imaging Report ---
PROCEDURE: CT chest with contrast only. TECHNIQUE: Multiple contiguous axial images were obtained through the chest after administration of intravenous contrast. Auto Exposure Controls were utilized during the CT exam to meet ALARA standards for radiation dose reduction. INDICATION: Productive cough. Exam is compared 05/26/2020. Also compared with remote exam 01/25/2017. Posterior sulcal left-sided pleural effusion small similar to the previous exams although slightly decreased in volume. A chronic dependent left lower lobe area of consolidation is unchanged from the comparisons. There are emphysematous features in the lungs present with some scarring in the right middle and upper lobes chronic. No evidence for new consolidation or acute pneumonia. Thoracic aorta is atherosclerotic but patent and nonaneurysmal. There is no pulmonary arterial filling defects. 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 The upper abdomen shows chronic benign hepatic cyst with no acute upper abdominal pathology. IMPRESSION: 1. 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 Dictated by: Dictated on workstation # [id number]
== END ==
LOC: RAD 08:45
PROVIDERS: ATTEND Nurse Practitioner Family
DX: J44.9 Chronic obstructive pulmonary disease, unspecified (principal); J90 Pleural effusion, not elsewhere classified
CPT/HCPCS: 36415; 71260; 82565; 84520

== ENCOUNTER 2021-05-08 06:29 | Outpatient (RCR) | payer MEDICARE ==
[~2021-05-08 06:29] MED LIST changes: -CATHETER FLUSH 10 ML SYR IV PRN; -HOLD METFORMIN - RECEIVED CONTRAST 20 ML VIAL IV SCH; -IOHEXOL 350 MG/ML 100 ML (OMNIPAQUE 350) VIAL IV ONE; -NS 100 ML (IVPB) BAG IV ONE
== END 2021-05-10 | disposition home or self-care (01) ==
LOC: CR3 06:29
PROVIDERS: ATTEND Internal Medicine
DX: Z29.8 Encounter for other specified prophylactic measures (principal)

== ENCOUNTER → 2021-06-14 | Outpatient (RCR) | payer MEDICARE | END | disposition home or self-care (01) | LOC: CR3 05-15 06:09 | PROVIDERS: ATTEND Internal Medicine | DX: Z29.8 Encounter for other specified prophylactic measures (principal) ==

== ENCOUNTER 2021-07-14 06:04 | Outpatient (RCR) | payer MEDICARE | END 2021-07-16 | disposition home or self-care (01) | LOC: CR3 06:04 | PROVIDERS: ATTEND Internal Medicine | DX: Z29.8 Encounter for other specified prophylactic measures (principal) ==

== ENCOUNTER → 2021-08-16 | Outpatient (RCR) | payer MEDICARE ==
[~2021-08-16] MED LIST changes: +MONT-40 PO; -MONT10TA32 PO
== END | disposition home or self-care (01) ==
LOC: CR3 07-17 06:08
PROVIDERS: ATTEND Internal Medicine
DX: Z29.8 Encounter for other specified prophylactic measures (principal)

== ENCOUNTER 2021-10-13 06:14 | Outpatient (RCR) | payer MEDICARE | END 2021-10-22 | disposition home or self-care (01) | LOC: CR3 06:14 | PROVIDERS: ATTEND Internal Medicine | DX: Z29.8 Encounter for other specified prophylactic measures (principal) ==

== ENCOUNTER → 2021-10-16 | Outpatient (CLI) | payer MEDICARE ==
--- NOTE | 2021-10-16 09:42 | Diagnostic Imaging Report ---
PROCEDURE: US Scrotum. TECHNIQUE: Multiple real-time grayscale images were obtained over the scrotum in various projections bilaterally. INDICATION: Left testicular mass. Right testicle measures 4.4 x 2.7 x 3.3 cm, the left testicle measures 4.2 x 2.2 x 3.5 cm. Both testes show homogeneous echotexture. No discrete testicular masses identified. There is blood flow to both testes. Epididymides these are unremarkable. There is a very small right hydrocele. No varicocele is detected. IMPRESSION: Essentially unremarkable scrotal ultrasound. There is no evidence of testicular mass or vascular compromise. Dictated by: Dictated on workstation # [id number]
== END ==
LOC: RAD 09:00
PROVIDERS: ATTEND Internal Medicine
DX: N50.9 Disorder of male genital organs, unspecified (principal)
CPT/HCPCS: 76870

== ENCOUNTER 2021-12-18 06:15 | Outpatient (RCR) | payer MEDICARE | END 2021-12-20 | disposition home or self-care (01) | LOC: CR3 06:15 | PROVIDERS: ATTEND Internal Medicine | DX: Z29.8 Encounter for other specified prophylactic measures (principal) ==

== ENCOUNTER 2022-02-16 06:07 | Outpatient (RCR) | payer MEDICARE | END 2022-02-19 | disposition home or self-care (01) | LOC: CR3 06:07 | PROVIDERS: ATTEND Internal Medicine | DX: Z29.8 Encounter for other specified prophylactic measures (principal) ==

== ENCOUNTER 2022-04-18 06:07 | Outpatient (RCR) | payer MEDICARE | END 2022-04-21 | disposition home or self-care (01) | LOC: CR3 06:07 | PROVIDERS: ATTEND Internal Medicine | DX: Z29.8 Encounter for other specified prophylactic measures (principal) ==

== ENCOUNTER → 2022-06-22 | Outpatient (RCR) | payer MEDICARE | END | disposition home or self-care (01) | LOC: CR3 04-23 05:55 | PROVIDERS: ATTEND Internal Medicine | DX: Z29.8 Encounter for other specified prophylactic measures (principal) ==

== ENCOUNTER → 2022-08-22 | Outpatient (RCR) | payer MEDICARE | END | disposition home or self-care (01) | LOC: CR3 06-27 06:42 | PROVIDERS: ATTEND Internal Medicine | DX: Z29.8 Encounter for other specified prophylactic measures (principal) ==

== ENCOUNTER → 2022-10-22 | Outpatient (RCR) | payer MEDICARE | END | disposition home or self-care (01) | LOC: CR3 08-24 06:41 | PROVIDERS: ATTEND Internal Medicine | DX: Z29.8 Encounter for other specified prophylactic measures (principal) ==

== ENCOUNTER 2022-12-17 06:10 | Outpatient (RCR) | payer MEDICARE | END 2022-12-20 | disposition home or self-care (01) | LOC: CR3 06:10 | PROVIDERS: ATTEND Internal Medicine | DX: Z29.8 Encounter for other specified prophylactic measures (principal) ==

== ENCOUNTER 2023-02-13 06:32 | Outpatient (RCR) | payer MEDICARE | END 2023-02-19 | disposition home or self-care (01) | LOC: CR3 06:32 | PROVIDERS: ATTEND Internal Medicine | DX: Z29.8 Encounter for other specified prophylactic measures (principal) ==

== ENCOUNTER → 2023-03-22 | Outpatient (RCR) | payer MEDICARE | END | disposition home or self-care (01) | LOC: CR3 02-20 06:17 | PROVIDERS: ATTEND Internal Medicine | DX: Z29.8 Encounter for other specified prophylactic measures (principal) ==

== ENCOUNTER → 2023-05-22 | Outpatient (RCR) | payer MEDICARE | END | disposition home or self-care (01) | LOC: CR3 03-25 06:14 | PROVIDERS: ATTEND Internal Medicine | DX: Z29.8 Encounter for other specified prophylactic measures (principal) ==

== ENCOUNTER 2023-07-19 06:16 | Outpatient (RCR) | payer MEDICARE | END 2023-07-22 | disposition home or self-care (01) | LOC: CR3 06:16 | PROVIDERS: ATTEND Internal Medicine | DX: Z01.89 Encounter for other specified special examinations (principal) ==